=== PATIENT | male | born 1985 | race Caucasian/White ===

== ENCOUNTER 2016-10-31 06:17 | Day surgery (SDC) | payer BC, OTHER ==
[~2016-10-31] VITALS: Ht 198.1 cm; Wt 108.9 kg
--- NOTE | ~2016-10-31 | O ---
[facility] [place] [address] OPERATIVE REPORT Name: KELI ALCALA Room #: DEP [facility] M..#: [id number] Admission: 10/31/16 Attend Phys: Duglas Dietz MD Discharge: 10/31/16 Date of : 87 Report #: [id number] THIS REPORT FOR: //name// CC: Home Dietz DATE OF SERVICE: 10/31/2016 PREOPERATIVE DIAGNOSES: Nasal septal deformity, turbinate hypertrophy. POSTOPERATIVE DIAGNOSES: Nasal septal deformity, turbinate hypertrophy. PROCEDURE: Nasal septoplasty, turbinate reduction. SURGEON: Duglas Dietz MD ANESTHESIA: General LMA. INDICATIONS: See H and P. FINDINGS: Very severe deviation of the quadrangle cartilage off the maxillary crest to the left with a bony deviation of the maxillary crest, superiorly, inferiorly as well. The deviation persists on the left side all the way back into the vomer as well. TECHNIQUE: After obtaining consent, he was brought to the operating suite. Appropriate time-out was performed. General anesthesia used to induce the patient and was maintained throughout the case. Bed was turned to 90 degrees. Nose was prepped and draped in usual sterile fashion. A 6 mL of 1% Xylocaine 1:100,000 epinephrine injected in each side of the septum. Later in the case, an additional 2 mL was used on the inferior turbinates. Right-sided transfixation incision was made followed by elevation of a mucosal flap off the quadrangular cartilage on the left side, carrying back through the vomer as well. Due to the large deviation of the quadrangle cartilage, I harvested a large rectangular piece of the cartilage anteriorly and inferiorly leaving enough superiorly and anteriorly for tip support. Bony cartilaginous junction was disarticulated and elevated mucosal flap off the right side as far back as possible, fully exposing the deviation. The quadrangle cartilage deviation was removed followed by using Bianca to remove the deviation and the vomer inferiorly. I then had return anteriorly and back elevate off the maxillary crest on both the right and left sides with rather difficult dissection on the left eye due to the very sharp angulation of the septum. Using combination of Román-Ernesto scissors, Bianca forceps and a 6 and 4 mm chisel, I was able to remove the majority of the deviation on the left side. A small amount had to be left at the anterior portion of the septum as this was part of the tip support mechanism. Previous site of harvested cartilage was placed back between [facility] [address] [place] [address] OPERATIVE REPORT Name: KELI ALCALA Room #: DEP [facility].R.#: [id number] Admission: 10/31/16 Attend Phys: Duglas Dietz MD Discharge: 10/31/16 Date of : 87 Report #: [id number] the septal folds. There was noted to be a tear in the mucosa on both the right and the left sides, but these were not directly adjacent to each other with one on the right being slightly higher than the one on the left. Nevertheless, I made sure the cartilaginous piece was placed back in the adjacent area of these perforations. A hemitransfixion incision was closed with simple interrupted 4-0 chromic suture. I then made sure the mucosa was unfurled on both sides of the septum and placed septal splints, secured them with 3-0 Prolene suture. Each inferior turbinate was medialized with Boies elevator. I then did a submucous resection of the right inferior turbinate and on the left side registered an outfracturing technique. MeroGel was then placed between the septum and inferior turbinates bilaterally to prevent any synechia formation. At this point, the case was terminated. He was allowed to awaken per anesthesia and returned to recovery room in stable condition. Estimated blood loss approximately 20 mL. <ELECTRONICALLY SIGNED> By: Duglas Dietz MD 11/01/16 0816 1230 [id number] Duglas Dietz MD /nt
--- NOTE | ~2016-10-31 | H ---
[facility] [place] [address] HISTORY AND PHYSICAL Name: KELI ALCALA Room #: 150-6 [facility] M.R.#: [id number] Admission: 10/31/16 Attend Phys: Duglas Dietz MD Discharge: Date of : 87 Report #: [id number] THIS REPORT FOR: //name// CC: Home Dietz DATE OF SERVICE: 10/30/2016 DATE OF SURGERY: 10/31/2016 CHIEF COMPLAINT: Nasal airway obstruction. HISTORY OF PRESENT ILLNESS: The patient is a 31-year-old gentleman evaluated 10/01/2016 with a longstanding complaint of chronic sinus nasal congestion and difficulty breathing from his right nasal passageway despite the use of Zyrtec and Flonase for allergy symptoms. He continues to have nasal airway obstruction. He has a previous history of nasal trauma as well. He had a previous history of allergy shots as a child. His physical examination at that time demonstrated bilateral turbinate hypertrophy with a severe left inferior deviation of his nasal septum impacting against the inferior turbinate with an over correction ____ right side as well. Based on the findings on examination of his severe and significant deviated septum with a complaint of significant right-sided nasal airway obstruction now related to his allergies, he is considered a reasonable candidate for surgical intervention that include a septal reconstruction and turbinate reduction for improvement or resolution of nasal airway obstruction. I reviewed the risks of surgery with him included but not limited to anesthesia, bleeding, infection, septal perforation, septal hematoma or seroma formation, lack of clinical improvement in symptoms of obstruction and airflow relief. We also discussed the alternatives to continue with the same medications and all questions were answered. He agrees to proceed forward at this time. ALLERGIES TO MEDICATIONS: None. MEDICATIONS ON ADMISSION: Flonase nasal spray 2 puffs each naris once a day, Zyrtec 10 mg once a day. PAST MEDICAL AND SURGICAL HISTORY: Notable for previous adenotonsillectomy, PE tubes for his ears. FAMILY HISTORY: Unremarkable. REVIEW OF SYSTEMS: Negative for any known GI, , cardiovascular, pulmonary or hematopoietic issues. PHYSICAL EXAMINATION: [facility] [address] [place] [address] HISTORY AND PHYSICAL Name: KELI ALCALA Room #: 150-6 [facility] M.R.#: [id number] Admission: 10/31/16 Attend Phys: Duglas Dietz MD Discharge: Date of : 87 Report #: [id number] GENERAL: Height is 6 feet 6 inches. He is height and weight proportional. HEENT: As I already described above for the nasal anatomy. Oral cavity and oropharynx are unremarkable aside from surgically absent tonsils. NECK: Normal to palpation. CHEST: Clear. CARDIOVASCULAR: Regular rate, regular rhythm. ASSESSMENT: History of nasal airway obstruction with physical examination findings. PLAN: Will be for the above surgery. <ELECTRONICALLY SIGNED> By: Duglas Dietz MD 10/31/16 0856 0816 08 MD mary Kelly
[~2016-10-31 06:17] MED LIST: FLONASE 0.05%50 MCG NASAL; ZYRTEC10 M5 PO
[2016-10-31 09:25] VITALS: BP 147/98
[2016-10-31 13:06] VITALS: BP 147/98
== END 2016-10-31 15:43 | disposition home or self-care (01) ==
LOC: OR 06:17 → TBA 06:17 → OR 11:36
DX: J34.2 Deviated nasal septum (principal); J34.3 Hypertrophy of nasal turbinates
CPT/HCPCS: 50010; 50101; 50386; 50398; 50951; 51316; 51634; 53635; 56526; 56528; 62110; 62900; 64037; 70005